=== PATIENT | female | born 1950 | race Caucasian/White ===

== ENCOUNTER 2016-06-18 12:37 | Outpatient (CLI) | payer BC | END 2016-06-18 12:38 | disposition home or self-care (01) | DX: R19.01 Right upper quadrant abdominal swelling, mass and lump (principal) ==

== ENCOUNTER 2016-07-04 12:55 | Outpatient (CLI) | payer BC | END 2016-07-04 12:56 | disposition home or self-care (01) | DX: R19.01 Right upper quadrant abdominal swelling, mass and lump (principal) ==

== ENCOUNTER 2016-11-21 15:28 | Outpatient (CLI) | payer BC ==
--- NOTE | 2016-11-22 09:42 | Ultrasound Report ---
RENAL ULTRASOUND: 11/21/2016 CLINICAL INDICATION: Neurogenic bladder. COMPARISON: 03/22/2011 TECHNIQUE: Real-time scanning was performed with dental sales representative static images obtained. FINDINGS: The right kidney measures 10.2 x 3.8 x 3.4 cm, and the left kidney measures 10.9 x 5.5 x 4 .8 cm. There is no hydronephrosis, solid renal mass, or perinephric collection. A 9-mm cyst is note d in the upper pole of the right kidney. Prevoid, the bladder measures 8.3 x 6.3 x 5.2 cm. Bilateral ureteral jets are visualized. Multiple bladder calculi are present, measuring up to 1.6 cm in diameter. Following unclamping of the bladder catheter, no postvoid residual is identified. IMPRESSION: 1. NO HYDRONEPHROSIS. 2. MULTIPLE BLADDER CALCULI. JOB #: [id number] EXT JOB #:[id number]
== END 2016-11-21 15:29 | disposition home or self-care (01) ==
LOC: DI 15:28
PROVIDERS: ATTEND Urology
DX: N21.0 Calculus in bladder (principal); N31.9 Neuromuscular dysfunction of bladder, unspecified
CPT/HCPCS: 74000; 76770

== ENCOUNTER 2016-11-21 15:31 | Outpatient (CLI) | payer BC ==
--- NOTE | 2016-11-22 09:29 | XRAY Report ---
SUPINE ABDOMEN: 11/21/2016 CLINICAL INDICATION: Bladder calculus. FINDINGS: Supine views of the abdomen are compared to previous films of 07/28/2015. Multiple bladde r calculi are seen, measuring from 7 to 17 mm in diameter. Suprapubic catheter is again noted. The bowel gas pattern is normal. No definite abnormal calcifications are appreciated overlying either re nal shadow. IMPRESSION: MULTIPLE BLADDER CALCULI. JOB #: [id number] EXT JOB #:[id number]
== END 2016-11-21 15:32 | disposition home or self-care (01) ==
LOC: DI 15:31
PROVIDERS: ATTEND Urology
DX: N21.0 Calculus in bladder (principal)
CPT/HCPCS: 74000

== ENCOUNTER 2016-12-17 08:00 | Outpatient (CLI) | payer BC ==
[2016-12-18 11:11] LABS: BASOPHILS % (AUTO) 0.9 %; EOSINOPHILS # (AUTO) 0.1 10^3/uL (0.0-0.7); EOSINOPHILS % (AUTO) 1.6 %; HCT - HEMATOCRIT 46.3 % (37.0-47.0); HGB - HEMOGLOBIN 15.2 g/dL (12.0-16.0); LYMPHOCYTES # (AUTO) 1.1 10^3/uL (1.5-3.5); LYMPHOCYTES % (AUTO) 26.8 %; MEAN CORPUSCULAR HEMOGLOBIN 30.3 pg (27.0-31.0); MEAN CORPUSCULAR HGB CONC 32.8 g/dL (32.0-36.0); MEAN CORPUSCULAR VOLUME 92.5 fL (81.0-99.0); MEAN PLATELET VOLUME 8.9 fL (7.9-10.8); MONOCYTES # (AUTO) 0.3 10^3/uL (0.0-1.0); NEUTROPHILS # (AUTO) 2.6 10^3/uL (1.5-6.6); NEUTROPHILS % (AUTO) 63.7 %; NUCLEATED RED BLOOD CELLS AUTO 0.8 /100WBC; RED CELL DISTRIBUTION WIDTH 14.2 % (12.0-15.0); UNCORRECTED WHITE BLOOD COUNT 4.1 x10^3/uL; WHITE BLOOD COUNT 4.1 x10^3/uL (4.8-10.8)
[2016-12-18 11:15] LABS: ALBUMIN/GLOBULIN RATIO 1.4 (1.0-2.2); BILIRUBIN,TOTAL 0.7 mg/dL (0.2-1.0); CALCIUM 10.5 mg/dL (8.5-10.3); CREATININE 0.6 mg/dL (0.4-1.0); POTASSIUM 4.2 mmol/L (3.5-5.0); TOTAL PROTEIN 7.5 g/dL (6.7-8.2)
== END 2016-12-17 08:01 ==
LOC: LAB.F 08:00
PROVIDERS: ATTEND Urology
DX: N21.0 Calculus in bladder (principal); Z51.81 Encounter for therapeutic drug level monitoring; Z79.899 Other long term (current) drug therapy; R53.83 Other fatigue; E04.9 Nontoxic goiter, unspecified
CPT/HCPCS: 36415; 80053; 84100; 84443; 85025

== ENCOUNTER 2017-06-27 14:59 | Outpatient (CLI) | payer MEDICARE, BC | END 2017-06-27 15:00 | disposition critical access hospital (66) | LOC: EMS 14:59 | PROVIDERS: ATTEND Surgery | DX: R45.851 Suicidal ideations (principal) | CPT/HCPCS: A0425; A0429 ==

== ENCOUNTER 2017-06-27 15:30 | Inpatient (IN) | payer MEDICARE, BC ==
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
[2017-06-27 16:32] LABS: BASOPHILS % (AUTO) 0.9 %; EOSINOPHILS % (AUTO) 0.5 %; HGB - HEMOGLOBIN 15.3 g/dL (12.0-16.0); LYMPHOCYTES # (AUTO) 1.1 10^3/uL (1.5-3.5); MEAN CORPUSCULAR HEMOGLOBIN 29.5 pg (27.0-31.0); MEAN CORPUSCULAR HGB CONC 32.7 g/dL (32.0-36.0); MEAN CORPUSCULAR VOLUME 90.1 fL (81.0-99.0); MEAN PLATELET VOLUME 7.8 fL (7.9-10.8); MONOCYTES # (AUTO) 0.3 10^3/uL (0.0-1.0); MONOCYTES % (AUTO) 6.6 %; NEUTROPHILS # (AUTO) 3.6 10^3/uL (1.5-6.6); PLT - PLATELET COUNT 221 10^3/uL (130-450); RED BLOOD COUNT 5.21 10^6/uL (4.20-5.40); RED CELL DISTRIBUTION WIDTH 13.6 % (12.0-15.0); WHITE BLOOD COUNT 5.2 x10^3/uL (4.8-10.8)
[2017-06-27 16:33] LABS: MUDS CUTOFF CONCENTRATIONS CUTOFF CONC BELOW:
[2017-06-27 16:38] LABS: BILIRUBIN,URINE NEGATIVE (NEGATIVE); GLUCOSE, URINE (UA) NEGATIVE (NEGATIVE); KETONES,URINE (UA) NEGATIVE (NEGATIVE); LEUKOCYTE ESTERASE, URINE LARGE (NEGATIVE); NITRITE,URINE POSITIVE (NEGATIVE); OCCULT BLOOD,URINE MODERATE (NEGATIVE); PROTEIN,URINE NEGATIVE (NEGATIVE); UROBILINOGEN,URINE 0.2 (NORMAL) E.U./dL (NORMAL)
[2017-06-27 16:40] LABS: CLARITY,URINE HAZY (CLEAR)
[2017-06-27 16:48] LABS: AMPHETAMINE SCREEN,URINE NEGATIVE (NEGATIVE); BENZODIAZEPINES SCREEN, URINE NEGATIVE (NEGATIVE); COCAINE SCREEN URINE NEGATIVE (NEGATIVE); METHADONE SCREEN, URINE NEGATIVE (NEGATIVE); METHAMPHETAMINES SCREEN, URINE NEGATIVE (NEGATIVE); OPIATE SCREEN, URINE POSITIVE (NEGATIVE); OXYCODONE SCREEN, URINE NEGATIVE (NEGATIVE); PROPOXYPHENE SCREEN, URINE NEGATIVE (NEGATIVE); TRICYCLIC ANTIDEPRESSANT,URINE POSITIVE (NEGATIVE)
[2017-06-27 16:52] LABS: ALBUMIN 4.5 g/dL (3.2-5.5); ALBUMIN/GLOBULIN RATIO 1.4 (1.0-2.2); ALKALINE PHOSPHATASE 104 IU/L (42-121); ALT ALANINE AMINOTRANSFERASE 60 IU/L (10-60); AST ASPARTATE AMINOTRANSFERASE 42 IU/L (10-42); BILIRUBIN,TOTAL 0.6 mg/dL (0.2-1.0); BUN - BLOOD UREA NITROGEN 17 mg/dL (6-20); CALCIUM 10.7 mg/dL (8.5-10.3); CARBON DIOXIDE - CO2 24 mmol/L (21-32); CHLORIDE 99 mmol/L (101-111); CREATININE 0.5 mg/dL (0.4-1.0); GFR - MDRD 124 (>89); GLUCOSE 99 mg/dL (70-100); LIPASE 10 U/L (22-51); SALICYLATE < 6.0 mg/dL; SODIUM 136 mmol/L (135-145); TOTAL PROTEIN 7.7 g/dL (6.7-8.2)
[2017-06-27] MEDS ORDERED: CIPROFLOXACIN 250 MG TABLET PO STA (16:52)
[2017-06-27] MEDS ORDERED: SULFAMETH/TRIMETH DS 800/160 MG TABLET PO STA (16:53)
[2017-06-27 16:55] LABS: ACETAMINOPHEN < 10 ug/mL (10-30)
[2017-06-27 17:02] LABS: AMORPHOUS SEDIMENT,UR Moderate /LPF; BACTERIA,URINE Moderate /HPF (None Seen); RBC,URINE 0-5 /HPF (0-5); SQUAMOUS EPITHELIAL CELL,UR NONE SEEN (<= Few)
[2017-06-27 17:09] LABS: INR 2.6 (0.8-1.2); PT - PROTHROMBIN TIME 28.7 secs (9.9-12.6)
[2017-06-28] MEDS ORDERED: SULFAMETH/TRIMETH DS 800/160 MG TABLET PO STA (03:10)
[2017-06-28] MEDS ORDERED: GABAPENTIN 100 MG CAPSULE PO STA (09:42)
[2017-06-28] MEDS: DOCUSATE SODIUM 100 MG CAPSULE PO STA (11:26)
[2017-06-28] MEDS ORDERED: WARFARIN 5 MG TABLET PO SCH (14:00)
[2017-06-28] MEDS ORDERED: GABAPENTIN 300 MG CAPSULE PO SCH (14:00)
[2017-06-28] MEDS ORDERED: WARFARIN 1 MG TABLET PO SCH (14:00)
--- NOTE | 2017-06-28 14:07 | ED Physician Documentation ---
ED Addendum - Addendum Addendum: 06/28/17 14:05 Patient is a 67-year-old female who presents to the emergency department with depression. She has had suicidal thoughts and is continuing to feel suicidal today. Social work was consulted, evaluated the patient and does not feel she is safe to go home, however there are no beds available and likely there will be no beds until at the earliest Friday but more likely Friday given her medical comorbidities. She is paraplegic and has MS. Has an indwelling suprapubic catheter. Is being treated with Bactrim for a catheter associated UTI. She is also on warfarin will need her INR monitored. Will discuss the case with the hospitalist to see if we can place the patient on the floor given her likely very extended emergency department stay and ongoing need for care that can likely not be provided as well in the emergency department as on the floor. Patient states that she is still suicidal, but is willing to go to a psychiatric hospital. discussed with Lolis GONZALES who [facility] D/w Dr. Tolbert who accepts. 06/28/17 14:22 Departure - Departure Disposition: 66 [facility] DC/Xfer Clinical Impression: Multiple sclerosis, Adequate anticoagulation on anticoagulant therapy Depression Qualifiers: Depression Type: major depressive disorder Major depression recurrence: recurrent Active/Remission status: currently active Major depression episode severity: severe Psychotic features: without psychotic features Qualified Code(s ): F33.2 - Major depressive disorder, recurrent severe without psychotic features UTI (urinary tract infection) Qualifiers: Urinary tract infection type: catheter-associated UTI Indwelling urinary catheter type: indwelling urethral catheter Encounter type: initial encounter Qualified Code(s): T83.511A - Infection and inflammatory reaction due to indwelling urethral catheter, initial encounter Condition: Good Prescriptions: Sulfamethoxazole/Trimethoprim [Sulfamethoxazole-Tmp Ds Tablet] 1 each PO BID 10 Days tablet
[2017-06-28] MEDS ORDERED: SODIUM CHLORIDE FLUSH 0.9% 10 ML SYRINGE IVP PRN (14:30)
[2017-06-28] MEDS ORDERED: ONDANSETRON 4 MG/2 ML VIAL IVP PRN (14:30)
[2017-06-28] MEDS ORDERED: ONDANSETRON ODT 4 MG TABLET TL PRN (14:30)
[2017-06-28] MEDS ORDERED: NITROFURANTOIN MACRO 100 MG CAPSULE PO STA (14:34)
[2017-06-28] MEDS ORDERED: NITROFURANTOIN MACRO 100 MG CAPSULE PO SCH (17:00)
[2017-06-28] MEDS: ACETAMINOPHEN 325 MG TABLET PO PRN (17:41)
[2017-06-28] MEDS: PATIENT OWN MED SL SCH (20:57)
[2017-06-28] MEDS: AMITRIPTYLINE 25 MG TABLET PO SCH (20:59)
[2017-06-28] MEDS: WARFARIN 1 MG TABLET PO SCH (20:59)
[2017-06-28] MEDS: GABAPENTIN 300 MG CAPSULE PO SCH (20:59)
[2017-06-28] MEDS: WARFARIN 5 MG TABLET PO SCH (21:00)
[2017-06-28] MEDS: SODIUM CHLORIDE FLUSH 0.9% 10 ML SYRINGE IVP SCH (21:00)
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
[2017-06-29] MEDS: SODIUM CHLORIDE FLUSH 0.9% 10 ML SYRINGE IVP SCH ×3 (06:12→13:57)
[2017-06-29] MEDS: GABAPENTIN 300 MG CAPSULE PO SCH ×3 (06:12→21:10)
[2017-06-29] MEDS ORDERED: DOCUSATE SODIUM 100 MG CAPSULE PO SCH (09:00)
[2017-06-29] MEDS: DOCUSATE SODIUM 100 MG CAPSULE PO STA (10:10)
[2017-06-29] MEDS: PATIENT OWN MED PO SCH (10:11)
[2017-06-29] MEDS ORDERED: MIN OIL/DIMETHICON/COCONUT OIL 92 GM TUBE TOP PRN (13:51)
[2017-06-29] MEDS: POLYETHYLENE GLYCOL 3350 17 GM PACKET PO SCH (13:56)
[2017-06-29] MEDS: LACTOBACILLUS RHAMNOSUS GG CAPSULE PO SCH (13:56)
[2017-06-29] MEDS: ACETAMINOPHEN 325 MG TABLET PO PRN (14:16)
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
[2017-06-29] MEDS: AMITRIPTYLINE 25 MG TABLET PO SCH (21:09)
[2017-06-29] MEDS: WARFARIN 1 MG TABLET PO SCH (21:10)
[2017-06-29] MEDS: WARFARIN 5 MG TABLET PO SCH (21:10)
[2017-06-29] MEDS: PATIENT OWN MED SL SCH (21:10)
[2017-06-29] MEDS: cephALEXin 250 MG CAPSULE PO SCH (21:35)
[2017-06-30] MEDS: ACETAMINOPHEN 325 MG TABLET PO PRN (04:03)
[2017-06-30] MEDS: PHENAZOPYRIDINE 100 MG TABLET PO SCH ×3 (05:04→14:31)
[2017-06-30] MEDS: GABAPENTIN 300 MG CAPSULE PO SCH ×2 (05:22→14:30)
[2017-06-30] MEDS: HYDROcod/ACETAM 5/325 MG TABLET PO PRN ×3 (05:22→15:08)
[2017-06-30] MEDS: PATIENT OWN MED PO SCH (09:18)
[2017-06-30] MEDS: LACTOBACILLUS RHAMNOSUS GG CAPSULE PO SCH (09:19)
[2017-06-30] MEDS: cephALEXin 250 MG CAPSULE PO SCH (09:19)
[2017-06-30] MEDS: POLYETHYLENE GLYCOL 3350 17 GM PACKET PO SCH (09:24)
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
--- NOTE | 2017-06-30 14:57 | Discharge Plan ---
Discharge Plan Disposition: [facility]Unit DC/Xfer Condition: Good Diet: Regular Activity Restrictions: Activity as Tolerated Shower Restrictions: Yes (requires assist) Driving Restrictions: Yes (requires assist) Assistance Devices: Wheelchair No Smoking: If you smoke, Please STOP! Call for help. Follow-up with: Martha Carl PA-C [Primary Care Provider] -
[2017-06-30 15:33] VITALS: BP 155/89
[2017-06-30] MEDS ORDERED: DOCUSATE SODIUM 100 MG CAPSULE PO SCH (21:00)
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
== END 2017-06-30 17:02 | DRG 880 ==
LOC: EDUNIT# → ED 15:30 → MS3 06-28 14:30
PROVIDERS: ADMIT Specialist; ATTEND Specialist
DX: R45.851 Suicidal ideations (principal); F33.2 Major depressive disorder, recurrent severe without psychotic features; T83.511A Infection and inflammatory reaction due to indwelling urethral catheter, initial encounter; N39.0 Urinary tract infection, site not specified; B96.1 Klebsiella pneumoniae [K. pneumoniae] as the cause of diseases classified elsewhere; Y84.6 Urinary catheterization as the cause of abnormal reaction of the patient, or of later complication, without mention of misadventure at the time of the procedure; G35 Multiple sclerosis; N31.9 Neuromuscular dysfunction of bladder, unspecified; G83.89 Other specified paralytic syndromes; Z85.828 Personal history of other malignant neoplasm of skin; F41.9 Anxiety disorder, unspecified; Z86.711 Personal history of pulmonary embolism; Z88.1 Allergy status to other antibiotic agents; Z66 Do not resuscitate; Z79.01 Long term (current) use of anticoagulants; Z86.718 Personal history of other venous thrombosis and embolism; Z74.01 Bed confinement status; T74.31XA Adult psychological abuse, confirmed, initial encounter; Z88.0 Allergy status to penicillin; Y07.01 Husband, perpetrator of maltreatment and neglect; Z87.891 Personal history of nicotine dependence; Z63.72 Alcoholism and drug addiction in family; Z22.39 Carrier of other specified bacterial diseases
CPT/HCPCS: 36415; 80053; 80306; 80307; 80320; 80329; 81001; 81003; 83690; 85025; 85610; 87077; 87086; 99284; 99285

== ENCOUNTER 2018-01-12 15:17 | Outpatient (CLI) | payer MEDICARE ==
--- NOTE | 2018-01-12 18:01 | Ultrasound Report ---
Reason: NEUROGENIC BLADDER Procedure Date: 01/12/2018 Accession Number: [id number] / [id number] Procedure: US - Retroperitoneal CPT Code: FULL RESULT: EXAM: RENAL ULTRASOUND. EXAM DATE: 01/12/2018 03:40 PM. CLINICAL HISTORY: Neurogenic bladder. Rule out stones and hydronephrosis. COMPARISON: Renal ultrasound 11/21/[address] of the abdomen and pelvis without contrast 08/04/2014. TECHNIQUE: Real-time scanning was performed with static images obtained. FINDINGS: Right Kidney: 10.0 x 4.9 x 3.4 cm. Normal echotexture with no stones, contour-deforming masses, or hydronephrosis. Left Kidney: 10.4 x 5.1 x 6.0 cm. Normal echotexture with no stones, contour-deforming masses, or hydronephrosis. Bladder: Ureteral jets were not visualized. Urinary bladder is not well evaluated due to decompressed status with catheter in place. No gross bladder calculi. Other: None. IMPRESSION: 1. No hydronephrosis or renal calculi. 2. Poor evaluation of the urinary bladder due to decompressed state with catheter in place. No definite bladder calculi demonstrated on current exam, though possibly obscured. RADIA
== END 2018-01-12 15:18 | disposition home or self-care (01) ==
LOC: DI 15:17
PROVIDERS: ATTEND Urology
DX: N31.9 Neuromuscular dysfunction of bladder, unspecified (principal)
CPT/HCPCS: 76770

== ENCOUNTER 2018-11-23 08:24 | Outpatient (CLI) | payer MEDICARE | END 2018-11-23 08:25 | disposition short-term general hospital (02) | LOC: EMS 08:24 | PROVIDERS: ATTEND Surgery | DX: R50.9 Fever, unspecified (principal); R53.83 Other fatigue; R52 Pain, unspecified | CPT/HCPCS: A0425; A0427 ==

== ENCOUNTER 2022-03-15 18:51 | Outpatient (CLI) | payer MEDICARE ==
--- NOTE | 2022-03-15 16:45 | XRAY Report ---
PROCEDURE: Foot 3 View RT INDICATIONS: RIGHT FOOT PAIN TECHNIQUE: 3 views of the foot were acquired. COMPARISON: None. FINDINGS: Bones: No fractures or dislocations. No suspicious bony lesions. There is mild degenerative osteoa rthritic joint space narrowing at the inner phalangeal joints best seen at the first digit, but no tr auma or evidence of osteomyelitis is found. Soft tissues: No tibiotalar joint effusion. Achilles tendon appears normal. IMPRESSION: Mild degenerative osteoarthritis, no trauma found. Reviewed by: Demetri Muñoz MD on 03/15/2022 4:44 PM PDT Approved by: Demetri Muñoz MD on 03/15/2022 4:44 PM PDT Station ID: [id number]
== END 2022-03-15 18:52 | disposition home or self-care (01) ==
LOC: DI.S 18:51
PROVIDERS: ATTEND Physician Assistant
DX: M19.071 Primary osteoarthritis, right ankle and foot (principal)

== ENCOUNTER 2023-01-02 08:00 | Outpatient (CLI) | payer MEDICARE ==
[2023-01-03 07:10] LABS: ADENOVIRUS F 40/41 Not Detected (Not Detected); ASTROVIRUS Not Detected (Not Detected); C DIFFICILE TOXIN A/B Not Detected (Not Detected); CAMPYLOBACTER Not Detected (Not Detected); CRYPTOSPORIDIUM Not Detected (Not Detected); CYCLOSPORA CAYETANENSIS Not Detected (Not Detected); ENTAMOEBA HISTOLYTICA Not Detected (Not Detected); ENTEROAGGREGATIVE E COLI Not Detected (Not Detected); ENTEROPATHOGENIC E COLI Detected (Not Detected); ENTEROTOXIGENIC E COLI Not Detected (Not Detected); GIARDIA LAMBLIA Not Detected (Not Detected); NOROVIRUS GI/GII Not Detected (Not Detected); PLESIOMONAS SHIGELLOIDES Not Detected (Not Detected); ROTAVIRUS A Not Detected (Not Detected); SALMONELLA Not Detected (Not Detected); SAPOVIRUS Not Detected (Not Detected); SHIGA-TOXIN-PRODUCING E COLI Not Detected (Not Detected); SHIGELLA/ENTEROINVASIVE E COLI Not Detected (Not Detected); VIBRIO Not Detected (Not Detected); VIBRIO CHOLERAE Not Detected (Not Detected); YERSINIA ENTEROCOLITICA Not Detected (Not Detected)
== END 2023-01-02 23:59 | disposition home or self-care (01) ==
LOC: LAB.R 08:00
PROVIDERS: ATTEND Family Medicine
DX: R19.7 Diarrhea, unspecified (principal)
CPT/HCPCS: 87493; 87507

== ENCOUNTER 2023-01-07 08:00 | Outpatient (CLI) | payer MEDICARE ==
--- NOTE | 2023-01-07 21:53 | XRAY Report ---
PROCEDURE: Chest 2 View X-Ray INDICATIONS: CHEST PAIN TECHNIQUE: 2 views of the chest were acquired. COMPARISON: None. FINDINGS: Surgical changes and devices: None. Lungs and pleura: Chronic in procedure changes and elevation of the hemidiaphragms obscuring the hea rt size. Left basilar atelectasis and or infiltrate Mediastinum: Mediastinal contours appear normal. Bones and chest wall: No suspicious bony lesions. Overlying soft tissues appear unremarkable. IMPRESSION: Left basilar atelectasis and or infiltrate accentuated by low lung volumes Reviewed by: Braeden Irwin MD on 01/07/2023 8:52 PM AKDT Approved by: Braeden Irwin MD on 01/07/2023 8:52 PM AKDT Station ID: [id number]
== END 2023-01-07 23:59 | disposition home or self-care (01) ==
LOC: DI.S 08:00
PROVIDERS: ATTEND Physician Assistant
DX: R07.9 Chest pain, unspecified (principal); R91.8 Other nonspecific abnormal finding of lung field